=== PATIENT | female | born 1960 | race Caucasian/White ===

== ENCOUNTER 2016-11-05 00:30 | Day surgery (SDC) | payer MEDICARE, MEDICAID ==
[~2016-11-05 00:30] MED LIST: AMIT100T2 PO; CHOL5000 PO; CYAN50003 PO; DESV100T PO; FOLI-52 PO; HYDR-3091 PO; IBUP200C PO; LAMO200T2 PO; PANT40TA2 PO; QUET400T PO; VIT1TABL83 PO
[2016-11-05] MEDS ORDERED: 0.9% Sodium Chloride 1,000 ML IV SCH (06:00)
[2016-11-05] MEDS ORDERED: Sodium Chloride LOK Flush 10 mL Syringe IV PRN (06:00)
[2016-11-05] MEDS ORDERED: fentaNYL-PF 50 mCg/mL 2 mL Inj IVPUSH PRN (06:00)
== END 2016-11-05 23:59 | disposition home or self-care (01) ==
LOC: END 00:30
PROVIDERS: ATTEND Internal Medicine Gastroenterology
DX: Z12.11 Encounter for screening for malignant neoplasm of colon (principal); Z53.8 Procedure and treatment not carried out for other reasons